=== PATIENT | female | born 1940 | race Two or more races ===

== ENCOUNTER 2018-01-05 19:46 | Emergency (ER) | payer MEDICARE ==
[~2018-01-05] VITALS: Ht 160 cm; Wt 68.0 kg
[2018-01-05 21:04] VITALS: BP 159/96
[2018-01-05] MEDS ORDERED: IBUPROFEN 600 MG TABLET PO ONE (21:15)
== END 2018-01-05 21:47 | disposition home or self-care (01) ==
LOC: EMS 19:48
DX: S52.501A Unspecified fracture of the lower end of right radius, initial encounter for closed fracture (principal); S52.611A Displaced fracture of right ulna styloid process, initial encounter for closed fracture; W18.39XA Other fall on same level, initial encounter; Y93.89 Activity, other specified; Y92.89 Other specified places as the place of occurrence of the external cause; Y99.8 Other external cause status
CPT/HCPCS: 99284

== ENCOUNTER 2021-06-11 11:57 | Emergency (ER) | payer MEDICARE ==
[~2021-06-11] VITALS: Ht 162.6 cm; Wt 75.0 kg
[2021-06-11] MEDS ORDERED: GABA-1181 PO (14:52)
[2021-06-11] MEDS ORDERED: METH-659 PO (14:52)
[2021-06-11] MEDS ORDERED: NAPR-1024 PO (14:52)
[2021-06-11] MEDS ORDERED: METHOCARBAMOL 500 MG TABLET PO ONE (15:00)
[2021-06-11] MEDS ORDERED: KETOROLAC TROMETHAMINE 10 MG TABLET PO ONE (15:00)
[2021-06-11 15:05] VITALS: BP 153/88
== END 2021-06-11 15:18 | disposition home or self-care (01) ==
LOC: EMS 12:07
DX: S20.211A Contusion of right front wall of thorax, initial encounter (principal); S80.02XA Contusion of left knee, initial encounter; S50.12XA Contusion of left forearm, initial encounter; V49.49XA Driver injured in collision with other motor vehicles in traffic accident, initial encounter; Y93.89 Activity, other specified; Y92.89 Other specified places as the place of occurrence of the external cause; Y99.8 Other external cause status
CPT/HCPCS: 71046; 93005; 99284